=== PATIENT | male | born 1995 | race Caucasian/White ===

== ENCOUNTER 2016-08-02 20:10 | Emergency (ER) | payer OTHER ==
[~2016-08-02] VITALS: Ht 193 cm; Wt 90.9 kg
[~2016-08-02 20:10] MED LIST: ALBU8.5H2 INHALATION; AZIT500T5 PO; MOME13HF IH
[2016-08-02 20:39] VITALS: BP 142/94; PULSE 109; RESP 18; O2SAT 92
[2016-08-02] MEDS ORDERED: 0.9% Sodium Chloride 1,000 ML IV ONE (21:55)
[2016-08-02] MEDS ORDERED: MethylprednisoLONE Sodium Succinate 62.5 mg/mL 2 mL Inj IVPUSH ONE (22:00)
[2016-08-02] MEDS ORDERED: Famotidine Inj 20 MG in IV Premix 1 EACH IV ONE (22:00)
[2016-08-02] MEDS ORDERED: predniSONE 20 mg Tablet PO ONE (22:15)
[2016-08-02] MEDS ORDERED: diphenhydrAMINE 25 mg Capsule PO ONE (22:15)
--- NOTE | 2016-08-02 23:09 | ED.REPORT ---
HPI-Altered Mental Status Date of Service Aug 02, 2016 ED Provider: Aurora Ayala MD History of Present Illness: Mr. Devante Rodriguez is a 21-year-old man who presents in [facility] emergency department with 1-1/2 history of amnesia, diffuse "itchiness", and productive cough. He states he does not remember how he got here he last remembers playing cards with his buddies around 8:00 PM. He does not recall ingesting any illicit drugs, FOOD items, chemicals or solvents. He denies fever, chills, difficulty swallowing, shortness of breath, chest pain, nausea, vomiting, constipation, diarrhea. Nursing Notes Stated Complaint: POSSIBLE ASTHMA ATTACK Chief Complaint: Respiratory Complaints Nursing Notes Reviewed: Yes Allergies: Coded Allergies: Penicillins (Verified Allergy, Mild, 01/30/16) AMOX Sulfa (Sulfonamide Antibiotics) (Verified Allergy, Unknown, 01/30/16) Scheduled Albuterol HFA (Proair HFA) 8.5 Gm Hfa.aer.ad 2 PUFFS INHALATION Q4H Azithromycin (Azithromycin) 500 Mg Tablet 500 MG PO DAILY Mometasone/Formoterol (Dulera 200 Mcg/5 Mcg Inhaler) 13 Gm Hfa.aer.ad 13 GM IH BID General Time Seen by MD: 21:29 Chief Complaint Memory loss Sudden in Onset?: No Past Medical History Past Medical History Reports: Asthma Past Surgical History hand surgery Smoking History Current Every Day Smoker Social History Marijuana occasionally Alcohol Use: Denies alcohol use Drug Use: Denies drug use Ambulatory Status Independent Review of Systems Respiratory: Reports: Prod cough, green Skin: Reports Itching, Reports Rash Psychiatric: Reports: Anxiety, Confusion, Stress Complete sys rev & neg: except as marked. Physical Exam Physical Exam Notes: General: Young individual in mild distress, well-developed, well-nourished, appropriately interactive HEENT: Normocephalic, atraumatic. External ears without defect. Pupils equal, round, and reactive to light and accommodation. Anicteric sclerae, moist conjunctivae, and no lid lag. Oropharynx free of erythema and cobble stoning with moist mucosa. Neck: Supple with full range of motion. No jugular venous distension. No bruits. No lymphadenopathy or thyromegaly. Cardiovascular: Tachycardic rate and rhythm with no murmurs, rubs, or gallops appreciated Pulmonary: Diffuse mild wheezes with right lower lobe rhonchi. Normal respiratory effort with no use of accessory muscles. Abdomen: Bowel tones present. Soft, nontender, nondistended. No hepatosplenomegaly or masses appreciated. Extremities: No clubbing, cyanosis, edema, or lymphadenopathy appreciated. Skin: Normal temperature, turgor, and texture; diffuse urticarial rash on upper extremities, face, trunk, lower extremity., ulcers, or subcutaneous nodules appreciated. Neurological: Cranial nerves grossly intact. Normal muscle strength, tone, and bulk. Reflexes, coordination, and sensory function within normal limits. No known gait impairment. Psychiatric: Normal mood and affect. Alert and oriented to person, place, and time. Initial Vital Signs Vital Signs (First) Date Time Temp Pulse Resp B/P Pulse Ox O2 Delivery O2 Flow Rate FiO2 08/02/16 20:39 35.7 109 18 142/94 92 Room Air Re-Eval/Medical Decision Med Decision/Clinical Course Mr. Devante castro is a 21-year-old individual who presents with 1-1/2 hour history of amnesia, who seems anxious and nervous about the situation. When questioned he mentions that he is under a lot of stress with family and his daughter currently but did not elaborate. He reports a diffuse itchy rash he states does not know how it began. He reports having a productive cough for some time now. 21-year-old male here with diffuse urticarial rash and wheezing per his friends who at this time is alert and oriented 4, GCS 15, not clinically intoxicated, and is requesting to leave AGAINST MEDICAL ADVICE. He was offered a nicotine patch because he states he wants to smoke. He declined it. He was given by mouth medications in the emergency department and encouraged to stay, however, he decided to leave. He is of decision-making capacity at this time and has chosen to leave AGAINST MEDICAL ADVICE. He is aware of risks of leaving. Re-Evaluation/Progress : Time of Eval: 22:42 Re-Evaluation/Progress Note: Patient is rechecked. He is informed of his results. Patient states that he would like to be discharged. He agrees to leave AMA without any recommended paperwork or treatment. Counseled Regarding: Diagnosis, Need for follow-up, When/why to return to ED Patient Discharge & Departure Impression: Primary Impression: Rash Disposition: AGAINST MEDICAL ADVICE Discharge Condition All VS Reviewed: Yes Condition: Stable Patient Instructions: Allergies (ED) Additional Instructions: Please take Benadryl and Pepcid [id number] as needed. Please follow-up with your primary care physician. Return to the ER for any worsening symptoms. Referrals: Reanna Little MD (PCP) [place] Attestation Portions of this note were transcribed by Clifford Tracey. I, Dr. Ayala personally performed the history, physical exam and medical decision-making; I reviewed and confirmed the accuracy of the information in the transcribed note. Signed by: Bee Huerta, 08/02/16 2300. Attending Statement I have read and agree with statements made by resident above. I examined the patient myself. He is a 23-year-old male with a diffuse urticarial rash with no wheezing. He has chosen to leave AGAINST MEDICAL ADVICE though I have encouraged him to stay. He is aware that he may return to the emergency department at any time. He is alert and oriented 4, GCS 15, no decision- making capacity at this time. copies to: Reanna Little MD, COREY P DO Aug 02, 2016 22:06 CLIFFORD TRACEY Aug 02, 2016 23:09 Aurora Ayala MD Aug 03, 2016 01:22
== END 2016-08-02 22:49 | disposition left against medical advice (07) ==
LOC: SED 20:10
DX: R21 Rash and other nonspecific skin eruption (principal); R05 Cough; J45.909 Unspecified asthma, uncomplicated; R41.3 Other amnesia; F17.200 Nicotine dependence, unspecified, uncomplicated; Z88.0 Allergy status to penicillin; Z88.2 Allergy status to sulfonamides